=== PATIENT | female | born 1970 | race African-American/Black ===

== ENCOUNTER 2016-08-12 07:18 | Emergency (ER) | payer BC ==
[~2016-08-12] VITALS: Ht 162.6 cm; Wt 75.3 kg
[~2016-08-12 07:18] MED LIST: AMLODIPINE BESY10 MG PO; CARAFATE1 GM PO; ESCITALOPRAM OX10 MG PO; LORTAB 5-325 M1 EACH PO; PRILOSEC20 MG PO; VALSARTAN-HCTZ1 EAC3 PO; ZOFRAN ODT8 MG PO
[2016-08-12] MEDS ORDERED: FLEXERIL10 MG PO (09:37)
[2016-08-12] MEDS ORDERED: MOTRIN600 MG PO (09:37)
[2016-08-12 09:59] VITALS: BP 135/77
== END 2016-08-12 10:00 | disposition home or self-care (01) ==
LOC: EME 07:18
DX: S06.0X9A Concussion with loss of consciousness of unspecified duration, initial encounter (principal); S16.1XXA Strain of muscle, fascia and tendon at neck level, initial encounter; I10 Essential (primary) hypertension; W00.0XXA Fall on same level due to ice and snow, initial encounter
CPT/HCPCS: 70450; 99281; 99283